=== PATIENT | female | born 1980 | race Caucasian/White ===

== ENCOUNTER 2021-01-22 16:49 | Observation (INO) | payer OTHER ==
[~2021-01-22] VITALS: Ht 160 cm; Wt 54.0 kg
[~2021-01-22 16:49] MED LIST: ADDERALL; CLONAZEPAM; PERCOCET 5-3251 EACH PO
[2021-01-22 17:06] VITALS: BP 141/93
[2021-01-22 17:37] LABS: ABSOLUTE EOSINOPHILS 0.5 thou/uL (0.0-0.7); ABSOLUTE LYMPHOCYTES 2.1 thou/uL (0.8-5.3); ABSOLUTE MONOCYTES 0.4 thou/uL (0.0-1.2); ABSOLUTE NEUTROPHILS 2.8 thou/uL (1.6-8.1); BASOPHILS 0.8 %; EOSINOPHILS 7.9 %; LYMPHOCYTES 36.5 %; MCH 17.6 pg (26.0-34.0); MCHC 26.7 g/dL (28.0-37.0); MCV 65.9 fL (80.0-100.0); MONOCYTES 6.7 %; MPV 6.4 fl. (7.2-11.1); NUCLEATED RBCS 0 /100WBC; PLATELET COUNT* 363 thou/uL (150-400); POLYS 48.1 %; RBC 2.35 mil/uL (4.20-5.00); RDW-CV 18.7 % (10.5-14.5); WBC 5.9 thou/uL (4.0-11.0)
[2021-01-22 17:53] LABS: HEMATOCRIT 15.5 % (37.0-47.0); HEMOGLOBIN 4.1 gm/dL (12.0-15.0)
[2021-01-22 18:07] LABS: CALCIUM 8.5 mg/dL (8.5-10.1); POTASSIUM 3.5 mmol/L (3.5-5.1)
[2021-01-22 19:29] LABS: ANISOCYTOSIS 2+; HYPOCHROMASIA 3+; MICROCYTES 2+; OVALOCYTES 1+; PLATELET ESTIMATE ADEQUATE
[2021-01-22 21:20] VITALS: BP 138/92
[2021-01-22 21:29] VITALS: BP 136/89
[2021-01-22 21:50] VITALS: BP 130/81; BP 134/86; BP 134/87
[2021-01-22] MEDS ORDERED: LISINOPRIL20 MG PO (22:22)
[2021-01-22] MEDS ORDERED: HYDROCHLOROTH12.5 M1 (22:24)
[2021-01-22] MEDS ORDERED: AMBIEN5 MG PO (22:25)
[2021-01-23 00:09] VITALS: BP 135/90; BP 136/86; BP 139/91
[2021-01-23 03:56] VITALS: BP 136/76
[2021-01-23 06:04] LABS: HEMATOCRIT 21.1 % (37.0-47.0); MCH 20.8 pg (26.0-34.0); MCHC 29.6 g/dL (28.0-37.0); MCV 70.3 fL (80.0-100.0); MPV 6.7 fl. (7.2-11.1); RBC 3.01 mil/uL (4.20-5.00); RDW-CV 22.8 % (10.5-14.5); WBC 5.2 thou/uL (4.0-11.0)
[2021-01-23 06:12] LABS: CREATININE 0.9 mg/dL (0.6-1.3); POTASSIUM 3.3 mmol/L (3.5-5.1)
[2021-01-23 06:27] LABS: HEMOGLOBIN 6.3 gm/dL (12.0-15.0)
[2021-01-23 07:59] VITALS: BP 132/96
--- NOTE | 2021-01-23 09:03 | EKG ---
[place] [address] ELECTROCARDIOGRAM REPORT Name: AVILADELMY EASTMAN [address]#: [id number] Admission: 01/22/21 Attend Phys: Lexi Wright MD Discharge: Date of : 76 Date of Service: 01/22/212109 Report #: [id number] THIS REPORT FOR: //name// [facility] ED Test Date: 2021-01-22 Test Time: 21:10:26 Pat Name: DELMY GRAMAJO Department: Room: [address] Gender: F Cop Examiner: FABIO : 1980 Requested By: Mckenna Baeza Order Number: [id number] Carmelo MD: Gera Sevilla Measurements Intervals [place] Rate: 74 P: 49 MN: 146 QRS: 25 QRSD: 93 T: 61 QT: 386 QTc: 429 Interpretive Statements Sinus rhythm No previous ECG available for comparison Electronically Signed On 01-23-2021 9:03:15 CDT by Gera Sevilla [email or web address] <ELECTRONICALLY SIGNED> By: Gera Sevilla MD, [facility] 01/23/21902 09 09 Gera Sevilla MD, [facility] /EPI
[2021-01-23 09:08] VITALS: BP 138/94; BP 146/103; BP 147/103; BP 147/98; BP 149/101
[2021-01-23] MEDS ORDERED: FEROSUL325 M1 PO (10:23)
[2021-01-23 14:29] LABS: CALCIUM 8.5 mg/dL (8.5-10.1); CREATININE 0.7 mg/dL (0.6-1.3)
[2021-01-23 14:30] LABS: POTASSIUM 5.4 mmol/L (3.5-5.1)
[2021-01-23 14:35] VITALS: BP 132/96
[2021-01-23 14:36] LABS: HEMATOCRIT 28.2 % (37.0-47.0)
[2021-01-23 14:37] LABS: HEMOGLOBIN 8.5 gm/dL (12.0-15.0)
[2021-01-23 15:00] VITALS: BP 132/96
== END 2021-01-23 14:59 | disposition home or self-care (01) ==
LOC: M.ERS 16:49 → M.TBA-ER 18:21 → M.2W 18:21
PROVIDERS: Emergency Medicine; ADMIT Family Medicine; ATTEND Family Medicine
DX: D50.9 Iron deficiency anemia, unspecified (principal); Z20.822 Contact with and (suspected) exposure to COVID-19; I10 Essential (primary) hypertension; F41.9 Anxiety disorder, unspecified; Z79.899 Other long term (current) drug therapy